=== PATIENT | female | born 1970 | race Caucasian/White ===

== ENCOUNTER 2016-02-16 09:50 | Emergency (ER) | payer BC, OTHER ==
[~2016-02-16] VITALS: Ht 162.6 cm; Wt 83.0 kg
[2016-02-16 10:00] VITALS: Ht 162.6 cm; Wt 83.0 kg
[2016-02-16] MEDS ORDERED: METOCLOPRAMIDE 10 MG INJ IV STA (10:31)
[2016-02-16] MEDS ORDERED: KETOROLAC 30 MG INJ IV STA (10:31)
[2016-02-16] MEDS ORDERED: SOD CHLORIDE 0.9% 1,000 ML IV STA (10:31)
[2016-02-16] MEDS ORDERED: DIPHENHYDRAMINE 50 MG INJ IV STA (10:31)
--- NOTE | 2016-02-16 10:34 | ERD ---
ER Documentation Chief Complaint Date/Time DATE: 02/16/16 Chief Complaint Headache, Facial pain HPI The patient is a 46-year-old female with a history of diabetes and prior migraines, who presents to the Emergency Department with complaint of headache. The patient reports that approximately 1.5 weeks ago she developed nasal congestion, and productive cough. After onset of these symptoms she was evaluated by her primary medical provider who prescribed her Amoxicillin. The patient took several days of the antibiotic, but noted that her symptoms did not improve, and instead she developed a vaginal yeast infection. She has been taking Monistat 7, with no significant relief of symptoms. Four days ago the patient developed a [id number] frontal headache that feels similar to her prior headaches/migraine. Since, she has also developed facial pain, localized over the regions of the frontal sinus and right maxillary sinus, chills and fevers. The facial regions are extremely tender to palpation. She notes that her pain is worse upon palpation and leaning over. She also reports photophobia and phonophobia. Otherwise, denies nausea, vomiting or diarrhea. Denies neck pain or neck stiffness. Denies new rashes. She admits to sick contacts at home, as her daughter as a "head cold." ROS All systems reviewed and are negative except as per history of present illness. Medications Home Meds Active Scripts Fluconazole* (Diflucan*) 150 Mg Tablet, 150 MG PO ONCE, #1 TAB Prov:ANNE CRUMP PA-C 02/16/16 Pseudoephedrine Hcl (Sudafed 12 Hour) 120 Mg Tablet.sa, 120 MG PO BID, #20 Prov:ANNE CRUMP PA-C 02/16/16 Ibuprofen* (Motrin*) 600 Mg Tab, 600 MG PO Q6, #30 TAB Prov:ANNE CRUMP PA-C 02/16/16 Amoxicillin/Potassium Clav (Amox-Clav 875-125 mg Tablet) 875-125 mg Tab, 1 TAB PO BID for 7 Days, TAB Prov:ANNE CRUMP PA-C 02/16/16 Allergies Allergies: Uncoded Allergies: FISH (Allergy, Intermediate, hives, 02/16/16) PMhx/Soc Medical and Surgical Hx: pt denies Medical Hx, pt denies Surgical Hx Hx Alcohol Use: No Hx Substance Use: No Hx Tobacco Use: No Physical Exam Vitals Vital Signs Date Time Temp Pulse Resp B/P Pulse Ox O2 Delivery O2 Flow Rate FiO2 02/16/16 10:00 97.7 87 18 152/68 97 Physical Exam GENERAL: Well-developed, well-nourished, in no acute distress HEENT: Head is normocephalic, atraumatic. Tenderness to palpation and percussion over the frontal sinus and right maxillary sinus, noted by facial wincing and patient withdrawing from pain. No scleral pallor or icterus. Pupils equal, round and reactive to light. No nystagmus. Positive photophobia. Extraocular movements intact. Conjunctiva pink. Mucoid nasal discharge. Bilaterally tympanic membranes are clear with no evidence of erythema, effusion or dulling of the light reflex. Moist mucous membranes. Posterior pharynx mildly erythematous with no exudates. Uvula is midline. NECK: Supple. No masses, no tenderness, no lymphadenopathy. Trachea midline. No nuchal rigidity. Full range of motion. No meningismus. RESPIRATORY: Lungs are clear to auscultation bilaterally. No rales, rhonchi or wheezing. Equal breath sounds. Normal expiratory effort. CARDIOVASCULAR: Regular rate and rhythm. S1 and S2 normal. No murmurs, rubs, or gallops. GASTROINTESTINAL: Abdomen is soft, non-tender, and non-distended. No guarding, no rebound tenderness. Normal bowel sounds. FLANK: No CVA tenderness. EXTREMITIES: No clubbing, cyanosis, or edema. Normal skin perfusion. Moving all extremities. Muscle tone is normal. No focal swelling or erythema. Distal pulses are palpable, 2+ bilaterally. Capillary refill is less than 2 seconds. NEUROLOGIC: The patient is alert, awake, and oriented x 3. No focal neurologic deficits. Cranial nerves II-XII intact. Gait is observed and normal. There is no ataxia. Motor normal in all extremities. Sensation grossly intact. Coordination normal. Speech is normal. Normal system integration engineer strength bilaterally. INTEGUMENT: Skin is clean, dry and intact. No rashes, lesions or petechiae present. Normal turgor. PSYCHIATRIC: Appropriate; Cooperative. Results 24 hrs Current Medications Medications (Trade) Dose Ordered Sig/Kate Route PRN Reason Start Time Stop Time Status Last Admin Dose Admin Sodium Chloride (NS) 1,000 ml @ 1,000 mls/hr Q1H STAT IV 02/16/16 10:31 02/16/16 11:30 DC 02/16/16 10:49 Metoclopramide HCl (Reglan) 10 mg ONCE STAT IV 02/16/16 10:31 02/16/16 10:32 DC 02/16/16 10:49 Ketorolac Tromethamine (Toradol) 30 mg ONCE STAT IV 02/16/16 10:31 02/16/16 10:32 DC 02/16/16 10:48 Diphenhydramine HCl (Benadryl) 25 mg ONCE STAT IV 02/16/16 10:31 02/16/16 10:32 DC 02/16/16 10:51 Fluconazole (Diflucan) 150 mg ONCE ONCE PO 02/16/16 11:00 02/16/16 11:01 DC 02/16/16 11:04 [facility] The patient is a 46-year-old female with a history of diabetes and prior migraines presenting to the Emergency Department with a headache and facial pain. On physical examination, she had tenderness to palpation and percussion over the frontal sinus and right maxillary sinus. Purulent mucoid nasal discharge noted. Posterior pharynx was mildly erythematous with postnasal drip. Otherwise, no exudates or palatal petechiae. She exhibited no altered mental status, neurologic deficits or meningeal signs. She was afebrile, with no tachycardia, no tachypnea, no signs of respiratory distress. She had a normal O2 saturation on room air. Her lungs were clear to auscultation, with no rales, rhonchi or wheezing. The differential diagnosis includes, but is not limited to , subarachnoid hemorrhage, intracerebral bleeding, cerebral aneurysm, meningitis , encephalitis, brain abscess, stroke, tumor, sinusitis, migraine headache, tension headache, glaucoma, cluster headache, pseudotumor cerebri, encephalopathy, upper respiratory infection, sepsis, otitis media, pneumonia, pertussis, pharyngitis, bronchitis, influenza. No evidence of acute sepsis, bacteremia, dehydration, meningitis, or other life-threatening etiology. Her condition remained stable and appropriate during her stay. After rest and administration of Toradol, Benadryl, Reglan and fluids, the patient reports no new complaints and significantly improved pain. She remains stable, with no signs of distress. Upon my review and interpretation of the patient's presentation and overall ER course, I believe the patient's symptoms are most consistent with acute sinusitis, and headache (much improved). The patient is well-appearing. She had no physical examination evidence of pneumonia. Patient's neck was supple, with no altered mental status, and therefore I doubt meningitis. Oropharynx was clear , with no exudates, petechiae, no associated anterior cervical lymphadenopathy, and therefore I doubt streptococcal pharyngitis. Uvula midline, no brawny induration, no trismus, no stridor, no submandibular swelling, no evidence of peritonsillar abscess, retropharyngeal abscess or Harman's angina. Tympanic membranes were clear bilaterally, with no erythema or bulging noted, and therefore I doubt otitis media. Her abdomen was soft, non-tender and non- distended. No guarding, no rebound tenderness, no gross peritonitis. No evidence of acute/surgical abdomen. At this time, the patient is in stable condition and she is not experiencing any signs of distress, and therefore she can be discharged home with a prescription for Augmentin, Sudafed and Ibuprofen , and strict return precautions for signs of deteriorating or worsening condition. The patient is advised to follow up with her primary care provider for reevaluation and further management within 2-3 days, or return to the ER sooner for any worsening symptoms. I shared my medical decision making and plan with the patient at length and in great detail, and she verbally understands and agrees with the plan for further observation and care as an outpatient. At the time of discharge, all questions were answered. Of note, the patient reports current vaginal candidiasis. Therefore, she was given a dose of Fluconazole 150 mg PO x 1 in the ED. She will be given an rx for the same to take after completion of the newly prescribed antibiotic ( Augmentin). Departure Diagnosis: Primary Impression: Acute sinusitis Sinusitis location: unspecified location Recurrence: non-recurrent Qualified Code: J01.90 - Acute non-recurrent sinusitis, unspecified location Additional Impressions: Headache Headache type: unspecified Headache chronicity pattern: acute headache Intractability: not intractable Qualified Code: R51 - Acute nonintractable headache, unspecified headache type Vaginal candidiasis Condition: Stable Patient Instructions: Acute Sinusitis, Headache, Unspecified, Self-Care for Headaches, Sinusitis, Abx Tx, Vaginal Infection: Yeast (Candidiasis) Additional Instructions: Follow up with your primary medical provider in 2-3 days for reevaluation and further management. Return to the ER sooner for any new or worsening symptoms. ANNE CRUMP PA-C Feb 16, 2016 10:33
[2016-02-16] MEDS ORDERED: FLUCONAZOLE 150 MG TAB PO ONE (11:00)
[2016-02-16] MEDS ORDERED: IBUP-1542 PO (12:27)
[2016-02-16] MEDS ORDERED: AMOX1TAB10 PO (12:27)
[2016-02-16] MEDS ORDERED: PSEU120T51 PO (12:28)
[2016-02-16] MEDS ORDERED: FLUC150T17 PO (12:32)
== END 2016-02-16 12:57 | disposition home or self-care (01) ==
LOC: FTE 09:50
DX: J01.90 Acute sinusitis, unspecified (principal); B37.3 Candidiasis of vulva and vagina; E11.9 Type 2 diabetes mellitus without complications
CPT/HCPCS: 96374; 96375; J1200; J1885; J2765; J7030; Z7502; Z7610

== ENCOUNTER 2016-02-22 10:11 | Emergency (ER) | payer BC ==
[~2016-02-22] VITALS: Ht 160 cm; Wt 82.5 kg
[~2016-02-22 10:11] MED LIST: AMOX1TAB10 PO; FLUC150T17 PO; IBUP-1542 PO; PSEU120T51 PO
[2016-02-22 10:15] VITALS: Ht 160 cm; Wt 82.5 kg
[2016-02-22] MEDS ORDERED: ONDANSETRON 4 MG INJ IV STA (10:46)
[2016-02-22] MEDS ORDERED: FAMOTIDINE 20 MG INJ IV STA (10:46)
[2016-02-22] MEDS ORDERED: HYDROCODONE/APAP (5/325) TAB PO ONE (11:00)
--- NOTE | 2016-02-22 11:17 | RADRPT ---
PROCEDURE: Chest x-ray CLINICAL INDICATION: Cough TECHNIQUE: Chest single view COMPARISON: None FINDINGS: The heart is normal in size. The pulmonary vessels are normal in caliber. The lungs are clear. Th e costophrenic angles are sharp. The visualized bony thorax is unremarkable. IMPRESSION: No acute cardiopulmonary disease. RPTAT: HH .Tereos Maldonado MD, Date Time Electronically viewed and signed by .Tereso Maldonado MD, MD on 02/22/2016 11:17 .W/
[2016-02-22 11:37] LABS: ALBUMIN 4.2 g/dl (3.3-4.9); BASOPHIL # 0.1 10^3/ul (0.0-0.1); BASOPHILS % 0.8 % (0.0-2.0); EOSINOPHILS # 0.2 10^3/ul (0.0-0.5); EOSINOPHILS % 2.8 % (0.0-7.0); HEMATOCRIT 41.5 % (37.0-47.0); HEMOGLOBIN 14.1 g/dl (12.0-16.0); LYMPHOCYTES # 2.3 10^3/ul (0.8-2.9); LYMPHOCYTES % 31.1 % (15.0-51.0); MEAN CORPUSCULAR HEMOGLOBIN 27.8 pg (29.0-33.0); MEAN CORPUSCULAR HGB CONC 34.1 g/dl (32.0-37.0); MEAN CORPUSCULAR VOLUME 81.6 fl (82.0-101.0); MONOCYTE # 0.3 10^3/ul (0.3-0.9); MONOCYTES % 4.1 % (0.0-11.0); NEUTROPHIL # 4.5 10^3/ul (1.6-7.5); NEUTROPHILS % 61.2 % (39.0-77.0); PLATELET COUNT 299 10^3/UL (140-440); RED BLOOD COUNT 5.08 10^6/ul (4.20-5.40); RED CELL DISTRIBUTION WIDTH 14.3 % (11.5-14.5); UNCORRECTED WBC 7.3 10^3/ul (4.8-10.8); WHITE BLOOD COUNT 7.3 10^3/ul (4.8-10.8)
[2016-02-22 11:38] LABS: POTASSIUM 4.8 mmol/L (3.5-5.1)
[2016-02-22 11:40] LABS: ALBUMIN/GLOBULIN RATIO 1.02; BILIRUBIN,INDIRECT 0.3 mg/dl (0-1.1); BILIRUBIN,TOTAL 0.3 mg/dl (0.2-1.3); CONDITION 1; CREATININE 0.43 mg/dl (0.44-1.00); LH ANALYZER COMMENTS 1; TOTAL PROTEIN 8.3 g/dl (6.1-8.1)
[2016-02-22 11:41] LABS: CALCIUM 9.3 mg/dl (8.4-10.2)
[2016-02-22 11:45] LABS: ADD UMIC NO; URINE BILIRUBIN (Dip) NEGATIVE (NEGATIVE); URINE BLOOD (Dip) NEGATIVE (NEGATIVE); URINE COLOR LT. YELLOW (YELLOW); URINE KETONES (Dip) NEGATIVE (NEGATIVE); URINE LEUKOCYTE ESTERASE (Dip) NEGATIVE (NEGATIVE); URINE NITRITE (Dip) NEGATIVE (NEGATIVE); URINE TOTAL PROTEIN (Dip) NEGATIVE (NEGATIVE); URINE UROBILINOGEN (Dip) 0.2 E.U./dL (0.1-1.0)
--- NOTE | 2016-02-22 11:50 | RADRPT ---
PROCEDURE: CT Brain without. CLINICAL INDICATION: Headache TECHNIQUE: A CT of the brain was performed on a multi-slice CT scanner utilizing axial sections fr om the skull base through the vertex without contrast. Coronal and sagittal reconstructed images w ere provided. One or more of the following does reduction techniques were used: Automated exposure control; adjustment of the mA and/or kV according to patient size; use of the aorta of reconstructi on technique. Images were reviewed on a high-resolution PACS workstation. The exam CTDI = 45.01 mGy . The exam DLP = 630.2 mGy-cm. COMPARISON: None available FINDINGS: The ventricles and sulci are symmetric and normal in size and morphology. There is no evidence of i ntracranial hemorrhage, mass effect, edema or midline shift. No abnormal intra-axial or extra-axial fluid collections are seen. The villalta/white matter differentiation is well preserved. The osseous structures and visualized sinuses are unremarkable. The mastoid air cells are clear. Th e surrounding soft tissue scalp and bony calvarium are intact and normal. IMPRESSION: 1. Unremarkable CT brain. RPTAT: KK .Jude Cabral MD, MD Date Time Electronically viewed and signed by .Jude Cabral MD, MD on 02/22/2016 11:49 .B/
[2016-02-22] MEDS ORDERED: KETOROLAC 30 MG INJ IV STA (12:02)
[2016-02-22] MEDS ORDERED: ONDA8TAB14 PO (12:05)
[2016-02-22] MEDS ORDERED: CEFU500T PO (12:05)
[2016-02-22] MEDS ORDERED: HYDR-906 PO (12:05)
--- NOTE | 2016-02-22 12:08 | ERD ---
ER Documentation Chief Complaint Date/Time DATE: 02/22/16 TIME: 12:06 Chief Complaint GENERALIZED ABD PAIN, COUGHING OUT BLOODY SPUTUM; HEADACHES HPI This 46-year-old female presents with vomiting and abdominal pain for last 3 days. She also coughed up small blood clot the last day. She was seen here approximately 5 days ago and treated for sinus infection. She complains of persistent diffuse headache and nasal congestion as well. She has a cough. She denies diarrhea, urinary complaints. ROS All systems reviewed and are negative except as per history of present illness. Medications Home Meds Active Scripts Hydrocodone/Acetaminophen (Valencia 5-325 Tablet) 1 Each Tablet, 1 TAB PO Q6H Y for PAIN, #10 TAB Prov:VERNA MEEKS MD 02/22/16 Ondansetron (Ondansetron Odt) 8 Mg Tab.rapdis, 8 MG PO Q6H Y for NAUSEA AND/OR VOMITING, #8 TAB Prov:VERNA MEEKS MD 02/22/16 Cefuroxime Axetil* (Ceftin*) 500 Mg Tablet, 500 MG PO BID for 10 Days, #20 TAB Prov:VERNA MEEKS MD 02/22/16 Fluconazole* (Diflucan*) 150 Mg Tablet, 150 MG PO ONCE, #1 TAB Prov:ANNE CRUMP PA-C 02/16/16 Pseudoephedrine Hcl (Sudafed 12 Hour) 120 Mg Tablet.sa, 120 MG PO BID, #20 Prov:ANNE CRUMP PA-C 02/16/16 Ibuprofen* (Motrin*) 600 Mg Tab, 600 MG PO Q6, #30 TAB Prov:ANNE CRUMP PA-C 02/16/16 Amoxicillin/Potassium Clav (Amox-Clav 875-125 mg Tablet) 875-125 mg Tab, 1 TAB PO BID for 7 Days, TAB Prov:ANNE CRUMP PA-C 02/16/16 Allergies Allergies: Uncoded Allergies: FISH (Allergy, Intermediate, hives, 02/16/16) PMhx/Soc History of Surgery: Yes (Hysterectomy, X 4, umbilical hernia repair.) Anesthesia Reaction: No Hx Neurological Disorder: No Hx Respiratory Disorders: No Hx Cardiac Disorders: No Hx Psychiatric Problems: No Hx Miscellaneous Medical Probl: Yes (DM) Hx Alcohol Use: Yes (socially) Hx Substance Use: No Hx Tobacco Use: No Smoking Status: Never smoker Physical Exam Vitals Vital Signs Date Time Temp Pulse Resp B/P Pulse Ox O2 Delivery O2 Flow Rate FiO2 02/22/16 10:15 97.6 79 18 149/65 95 Physical Exam Const: [] Head: Atraumatic Eyes: Normal Conjunctiva ENT: Normal External Ears, Nose and Mouth. Neck: Full range of motion..~ No meningismus. Resp: Clear to auscultation bilaterally Cardio: Regular rate and rhythm, no murmurs Abd: Soft, non tender, non distended. Normal bowel sounds Skin: No petechiae or rashes Back: No midline or flank tenderness Ext: No cyanosis, or edema Neur: Awake and alert Psych: Normal Mood and Affect Result Diagram: 02/22/16 1104 02/22/16 1104 Results 24 hrs Laboratory Tests Test 02/22/16 11:04 Alanine Aminotransferase (ALT/SGPT) 49IU/L Albumin 4.2g/dl Albumin/Globulin Ratio 1.02 Alkaline Phosphatase 205IU/L Anion Gap 15 Aspartate Amino Transf (AST/SGOT) 38IU/L Basophils # 0.110^3/ul Basophils % 0.8% Blood Morphology Comment Blood Urea Nitrogen 12mg/dl Calcium Level 9.3mg/dl Carbon Dioxide Level 28mmol/L Chloride Level 100mmol/L Creatinine 0.43mg/dl Direct Bilirubin 0.00mg/dl Eosinophils # 0.210^3/ul Eosinophils % 2.8% Globulin 4.10g/dl Glucose Level 298mg/dl Hematocrit 41.5% Hemoglobin 14.1g/dl Indirect Bilirubin 0.3mg/dl Lipase 128U/L Lymphocytes # 2.310^3/ul Lymphocytes % 31.1% Mean Corpuscular Hemoglobin 27.8pg Mean Corpuscular Hemoglobin Concent 34.1g/dl Mean Corpuscular Volume 81.6fl Mean Platelet Volume 9.0fl Monocytes # 0.310^3/ul Monocytes % 4.1% Neutrophils # 4.510^3/ul Neutrophils % 61.2% Nucleated Red Blood Cells # 0.010^3/ul Nucleated Red Blood Cells % 0.0/100WBC Platelet Count 96330^3/UL Potassium Level 4.8mmol/L Red Blood Count 5.0810^6/ul Red Cell Distribution Width 14.3% Sodium Level 138mmol/L Total Bilirubin 0.3mg/dl Total Protein 8.3g/dl Urine Bilirubin NEGATIVE Urine Clarity CLEAR Urine Color LT. YELLOW Urine Glucose 0.5%% Urine Hemoglobin NEGATIVE Urine Ketones NEGATIVE Urine Leukocyte Esterase NEGATIVE Urine Nitrite NEGATIVE Urine Specific [place] 1.020 Urine Total Protein NEGATIVE Urine Urobilinogen 0.2 E.U./dL Urine pH 5.5 White Blood Count 7.310^3/ul Current Medications Medications (Trade) Dose Ordered Sig/Kate Route PRN Reason Start Time Stop Time Status Last Admin Dose Admin Ondansetron HCl (Zofran Inj) 4 mg ONCE STAT IV 02/22/16 10:46 02/22/16 10:50 DC 02/22/16 11:17 Famotidine (Pepcid Iv) 20 mg ONCE STAT IV 02/22/16 10:46 02/22/16 10:50 DC 02/22/16 11:17 Acetaminophen/ Hydrocodone Bitart (Valencia (5/325)) 1 tab ONCE ONCE PO 02/22/16 11:00 02/22/16 11:01 DC 02/22/16 11:17 Ketorolac Tromethamine (Toradol) 30 mg ONCE STAT IV 02/22/16 12:02 02/22/16 12:05 DC Procedures/MDM IV was obtained. CBC is normal. CMP shows a glucose of 298, otherwise normal. Chest X-ray 1V Interpreted by me: Soft Tissue: No acute abnormalities Bones: No acute abnormalities Mediastinum/Cardiac Silhouette/Lungs: [No acute abnormalities]. Impression abnormal 1 view chest x-ray Patient is concerned about her headache which is diffuse despite Valencia [address] brain was performed which is read as normal by the radiologist. Patient was given Toradol 30 mg IV after no evidence of intracranial bleeding. Patient additionally given Zofran 4 mg IV and Pepcid 20 mg IV. Patient presents with multiple complaints including headache, upper respiratory infection, vomiting, abdominal pain. There is no evidence of any abnormalities in the lung to explain the coughing of blood. I suspect she may have postnasal drip with blood possibly due to her sinus infection. There is no evidence of meningitis, pneumonia, respiratory distress, signs or symptoms to suggest acute abdomen. She will be treated with Ceftin she may be having side effects to her Augmentin as well causing her vomiting and GI discomfort. Given Zofran and a few Valencia at home instructions for clear fluids, observation and instructions to follow-up with primary doctor this week. She should otherwise return to the ER for new or worsening symptoms. The patient was stable with no new complaints during the ER course. Clinically, there is no current evidence to suggest meningitis, sepsis, acute abdomen, pneumonia, acute coronary syndrome, pulmonary embolism, or any other emergent condition appearing to require further evaluation or hospitalization. The patient should certainly return for any new or worsening symptoms per the aftercare instructions. They should otherwise follow-up with her primary care doctor for reevaluation this week. Departure Diagnosis: Primary Impression: Headache Headache type: unspecified Headache chronicity pattern: unspecified pattern Intractability: not intractable Qualified Code: R51 - Nonintractable headache, unspecified chronicity pattern, unspecified headache type Additional Impression: Abdominal pain Abdominal location: epigastric Qualified Code: R10.13 - Epigastric pain Condition: Stable Patient Instructions: Abdominal Pain, Headache, Unspecified, Sinusitis, Abx Tx Additional Instructions: Examinations normal today. Symptoms may be due to side effects from medications. Will treat with different medications. See primary doctor for follow-up or for new or worsening symptoms. VERNA MEEKS MD Feb 22, 2016 12:08
[2016-02-22 12:46] VITALS: BP 154/70; PULSE 74; RESP 18; TEMP 98.6
== END 2016-02-22 12:46 | disposition home or self-care (01) ==
LOC: FTE 10:11
DX: R51 Headache (principal); R10.13 Epigastric pain; E11.9 Type 2 diabetes mellitus without complications; R11.10 Vomiting, unspecified
CPT/HCPCS: 36415; 70450; 71010; 80053; 81003; 83690; 85025; 96374; 96375; J1885; J2405; Z7502; Z7610